=== PATIENT | female | born 1975 | race Caucasian/White ===

== ENCOUNTER 2020-08-26 02:30 | Emergency (ER) | payer OTHER ==
[~2020-08-26] VITALS: Ht 167.6 cm; Wt 110.2 kg
[~2020-08-26 02:30] MED LIST: FISH OIL 1,001000 M2 PO; IBUPROFEN 600600 M1 PO; LASIX 40 MG TAB40 M2 PO; MULTIVITAMINS1 EAC7 PO; POTASSIUM CHLO10 MEQ PO; PRINIVIL40 MG PO; VALIUM2 MG PO; VITAMIN D400 UNI2 PO; ZOLOFT25 MG PO
[2020-08-26 02:48] LABS: ANION GAP 8 mmol/L (7-16); BUN 16 mg/dL (7-18); CALCIUM 8.7 mg/dL (8.5-10.1); CHLORIDE 100 mmol/L (98-107); CO2 31 mmol/L (21-32); CREATININE 1.5 mg/dL (0.6-1.0); GLUCOSE 106 mg/dL (74-106); POTASSIUM 4.1 mmol/L (3.5-5.1); SODIUM 139 mmol/L (136-145)
[2020-08-26 02:51] LABS: ABSOLUTE NEUTROPHILS 5.1 thou/uL (1.4-8.2); EOSINOPHILS 4.9 % (0.0-3.0); HEMATOCRIT 38.2 % (37.0-47.0); HEMOGLOBIN 12.4 gm/dL (12.0-15.0); LYMPHOCYTES 30.9 % (24.0-44.0); MCH 29.2 pg (26.0-34.0); MCHC 32.4 g/dL (28.0-37.0); MCV 90.3 fL (80.0-100.0); MONOCYTES 8.7 % (1.0-8.0); PLATELET COUNT 364 thou/uL (150-400); POLYS 54.5 % (36.0-66.0); RBC 4.23 mil/uL (4.20-5.00); RDW 13.8 % (10.5-14.5); WBC 9.3 thou/uL (4.0-11.0)
[2020-08-26 02:58] LABS: ALBUMIN 3.3 g/dL (3.4-5.0); SGOT 16 U/L (15-37); SGPT 22 U/L (30-65); TOTAL BILIRUBIN 0.2 mg/dL (0.2-1.0); TOTAL PROTEIN 6.9 g/dL (6.4-8.2); TROPONIN-I <0.06 ng/mL (<0.06)
[2020-08-26 05:10] VITALS: BP 115/72
--- NOTE | 2020-08-26 09:58 | EKG ---
[place] [address] [place] [address] ELECTROCARDIOGRAM REPORT Name: CHE DE ANDA Room #: DEP [facility]#: [id number] Admission: 08/26/20 Attend Phys: Discharge: 08/26/20 Date of : 73 Report #: [id number] [facility]ly [facility] ED Test Date: 2020-08-26 Test Time: 02:39:13 Pat Name: CHEDANYELLE DE ANDA Department: Room: Gender: F [place] Resistance: MANOJ : 1975 Requested By: Ilan Joyner Order Number: [id number] MD: Joseph Steward Measurements Intervals [place] Rate: 70 P: 51 CO: 156 QRS: 14 QRSD: 107 T: -52 QT: 403 QTc: 435 Interpretive Statements Sinus rhythm Consider left atrial enlargement Nonspecific T abnormalities, diffuse leads Compared to ECG 10/01/2013 06:42:56 T-wave abnormality now present Poor R-wave progression no longer present Electronically Signed On 08-26-2020 9:58:09 [employer] by Joseph Steward [email or web address] <ELECTRONICALLY SIGNED> By: Joseph Steward MD, [facility] 08/26/20 0958 023 Joseph Steward MD, [facility] /EPI
== END 2020-08-26 05:10 | disposition home or self-care (01) ==
LOC: ER 02:30
PROVIDERS: Emergency Medicine
DX: S00.03XA Contusion of scalp, initial encounter (principal); I95.1 Orthostatic hypotension; M25.561 Pain in right knee; M25.562 Pain in left knee; I10 Essential (primary) hypertension; Z87.891 Personal history of nicotine dependence; Z79.899 Other long term (current) drug therapy; W18.30XA Fall on same level, unspecified, initial encounter; Y93.89 Activity, other specified; Y92.89 Other specified places as the place of occurrence of the external cause; Y99.9 Unspecified external cause status